=== PATIENT | female | born 2000 | race Hispanic/Latino ===

== ENCOUNTER 2020-07-02 11:28 | Emergency (ER) | payer OTHER ==
[2020-07-02] MEDS ORDERED: DEXAMETHASONE SOD PHOSPHATE 10MG/ML 1ML VIAL ONE (12:12)
[2020-07-02] MEDS ORDERED: KETOROLAC 30MG VIAL (30MG/ML) ONE (12:13)
== END 2020-07-02 12:49 | disposition home or self-care (01) ==
LOC: EDH 11:28
DX: M43.6 Torticollis (principal)
CPT/HCPCS: 96372 ×2; 99284; J1100; J1885